=== PATIENT | female | born 1945 | race Caucasian/White ===

== ENCOUNTER 2025-03-31 09:50 | Emergency (ER) | payer OTHER ==
[~2025-03-31] VITALS: Ht 162.6 cm; Wt 68.0 kg
[2025-03-31] MEDS ORDERED: CRAN400C PO (10:15)
[2025-03-31] MEDS ORDERED: CLOP75TA33 PO (10:15)
[2025-03-31] MEDS ORDERED: DOCU100C36 PO (10:15)
[2025-03-31] MEDS ORDERED: LEVO88TA5 PO (10:15)
[2025-03-31] MEDS ORDERED: ASPI81TA31 PO (10:15)
[2025-03-31] MEDS ORDERED: ATOR80TA PO (10:15)
[2025-03-31] MEDS ORDERED: AMLO10TA59 PO (10:15)
[2025-03-31] MEDS ORDERED: ACET-73 PO (10:15)
[2025-03-31 10:18] LABS: PLATELET COUNT (AUTO) 686 K/uL (179-408); RED BLOOD CELL COUNT(AUTO) 5.23 MIL/uL (3.63-4.92); RED CELL DISTRIBUTION WIDTH 16.8 % (12.3-17.7); WHITE BLOOD COUNT (AUTO) 18.7 K/uL (3.8-11.8)
[2025-03-31 10:28] LABS: CREATININE 1.3 mg/dL (0.6-1.3); SODIUM SERUM 138 mmol/L (136-145); UREA NITROGEN, BLOOD 12 mg/dL (7-18)
[2025-03-31 10:34] LABS: ETHANOL < 3 MG/DL (0-10)
[2025-03-31 10:38] LABS: LACTIC ACID 3.4 mmol/L (0.4-2.0)
[2025-03-31] MEDS ORDERED: CEFTRIAXONE /D5W 50ML IVPB **ER PYXIS IV ONE (10:46)
[2025-03-31 10:48] LABS: ASPARTATE AMINOTRANSFERASE 54 U/L (15-37); TOTAL PROTEIN, SERUM 7.4 g/dL (6.4-8.2)
[2025-03-31] MEDS: IV NORMAL SALINE 1000 ML BAG IV ONE (10:53)
[2025-03-31] MEDS ORDERED: LIDOCAINE 2% (GLYDO= UROJET) 10 ML JELLY MM ONE (11:20)
[2025-03-31] MEDS ORDERED: diphenhydrAMINE 50 MG/1 ML VIAL ONE (11:20)
[2025-03-31] MEDS ORDERED: MORPHINE SULFATE 4 MG/1 ML DISP.SYRIN ONE (11:20)
[2025-03-31] MEDS: CLOTRIMAZOLE 1% CREAM 30 GM TUBE TOP STA (11:28)
[2025-03-31] MEDS: diphenhydrAMINE 50 MG/1 ML VIAL IV ONE (11:28)
[2025-03-31] MEDS: MORPHINE SULFATE 4 MG/1 ML DISP.SYRIN IV ONE (11:28)
[2025-03-31] MEDS: LIDOCAINE 2% (GLYDO= UROJET) 10 ML JELLY MM ONE (11:39)
[2025-03-31 12:43] LABS: *AMPHETAMINE, URINE NEGATIVE (NEGATIVE); *BARBITURATE, URINE NEGATIVE (NEGATIVE); *BENZODIAZEPINE, URINE NEGATIVE (NEGATIVE); *CANNABINOID, URINE NEGATIVE (NEGATIVE); *CLARITY,URINE BLOODY (CLEAR); *COCCAINE, URINE NEGATIVE (NEGATIVE); *COLOR,URINE RED (YELLOW); *OPIATE, URINE POSITIVE (NEGATIVE); *PHENCYCLIDINE SCREEN,URINE NEGATIVE (NEGATIVE); FENTANYL, URINE NEGATIVE (NEGATIVE)
[2025-03-31 12:44] LABS: *PROTEIN,URINE 3+ (NEGATIVE)
[2025-03-31 12:45] LABS: *BILIRUBIN,URIN NEGATIVE (NEGATIVE); *BLOOD, URINE 4+ (NEGATIVE); *KETONES,URINE NEGATIVE (NEGATIVE); *UROBILINOGEN,URINE 0.2 E.U./dl (NORMAL); LEUKOCYTE ESTERASE ,URINE NEGATIVE (NEGATIVE); NITRITE, URINE NEGATIVE (NEGATIVE); UGLUCOSE NEGATIVE (NEGATIVE)
[2025-03-31 12:46] LABS: SQUAMOUS EPITHELIAL CELL,UR FEW /HPF (NONE SEEN)
[2025-03-31 17:20] VITALS: BP 118/68; O2SAT 98
== END 2025-03-31 17:46 | disposition short-term general hospital (02) ==
LOC: ER 09:50
DX: A41.9 Sepsis, unspecified organism (principal); N39.0 Urinary tract infection, site not specified; E03.9 Hypothyroidism, unspecified; E78.5 Hyperlipidemia, unspecified; F03.90 Unspecified dementia, unspecified severity, without behavioral disturbance, psychotic disturbance, mood disturbance, and anxiety; G89.29 Other chronic pain; I12.9 Hypertensive chronic kidney disease with stage 1 through stage 4 chronic kidney disease, or unspecified chronic kidney disease; N18.9 Chronic kidney disease, unspecified; K21.9 Gastro-esophageal reflux disease without esophagitis; Z79.02 Long term (current) use of antithrombotics/antiplatelets; Z79.82 Long term (current) use of aspirin; Z79.899 Other long term (current) drug therapy; Z86.73 Personal history of transient ischemic attack (TIA), and cerebral infarction without residual deficits; Z87.442 Personal history of urinary calculi; Z88.0 Allergy status to penicillin; Z88.2 Allergy status to sulfonamides; Z91.81 History of falling; Z87.09 Personal history of other diseases of the respiratory system; Z88.8 Allergy status to other drugs, medicaments and biological substances; Z20.822 Contact with and (suspected) exposure to COVID-19
CPT/HCPCS: 87081; 80076; 80048; 81001; 82140; 84443; 85025; 85730; 87426; 87040 ×2; 87186 ×2; 87086; 87077; 84484 ×2; 36415; 71045; 70450; 72125; 74176; 76770; 51702; 93005; 99285; 96361; 96365; 96375; 83605 ×2; 80299; 80320; 80307; J0696; J1200; J2270; J7040; A4606; A4663; G0480